=== PATIENT | female | born 1965 | race Two or more races ===

== ENCOUNTER 2018-04-06 01:20 | Emergency (ER) | payer SELFPAY ==
[~2018-04-06] VITALS: Ht 154.9 cm; Wt 60.3 kg
[~2018-04-06 01:20] MED LIST: VENL150C
[2018-04-06 02:41] LABS: Basophils # (auto) 0.1 uL; Eosinophils # (auto) 0.2 uL; Hemoglobin 10.2 g/dL (12.2-16.2); Lymphocytes # (auto) 2.4 uL; Mean Corpuscular Volume 77.1 fL (80.0-100.0); Monocytes # (auto) 0.7 uL; Monocytes % (auto) 6.2 % (0.0-12.0)
[2018-04-06 02:43] LABS: Basophils % (auto) 0.9 % (0.0-2.0); Eosinophils % (auto) 1.6 % (0.0-7.0); Hematocrit 32.6 % (36.0-46.0); Lymphocytes % (auto) 21.7 % (10.0-50.0); Mean Corpuscular Hemoglobin 24.2 pg (28.0-32.0); Mean Corpuscular Hgb Conc. 31.3 g/dL (32.0-36.0); Neutrophils # (auto) 7.7 uL; Neutrophils % (auto) 69.6 % (37.0-80.0); Nucleated Red Blood Cells % 0.1 %; Platelet Count (auto) 350 10^3/uL (140-450); Red Blood Cells 4.23 10^6/uL (4.0-5.20)
[2018-04-06 03:00] LABS: Alanine Aminotransferase 31 U/L (13-56); Albumin 3.2 g/dL (3.4-5.0); Anion Gap 9 (5-15); Aspartate Aminotransferase 19 U/L (15-37); BUN/Creatinine Ratio 9.7; Blood Alcohol < 3.0 mg/dL (0-5); Blood Urea Nitrogen 9 mg/dL (7-18); Calcium 7.7 mg/dL (8.5-10.1); Carbon Dioxide 24 mmol/L (21-32); Chloride 106 mmol/L (98-107); GFR African American 82 mL/min; GFR Non-African American 68 mL/min; Glucose 102 mg/dL (74-106); Magnesium 2.2 mg/dL (1.6-2.6); Potassium 3.5 mmol/L (3.5-5.1); Sodium 139 mmol/L (136-145)
[2018-04-06 03:05] LABS: Alkaline Phosphatase 86 U/L (45-117); Bilirubin, Total 0.1 mg/dL (0.2-1.0); Total Protein 6.8 g/dL (6.4-8.2)
[2018-04-06] MEDS ORDERED: SODIUM CHLORIDE 0.9% 1,000 ML IV ONE (04:30)
[2018-04-06 05:30] VITALS: BP 96/64
== END 2018-04-06 13:20 | disposition home or self-care (01) ==
LOC: EDBD 01:20 → ER 01:28
DX: R55 Syncope and collapse (principal)
CPT/HCPCS: 36415; 70450; 71045; 80053; 80320; 83735; 84484; 84702; 85025; 93005; 96360; 99285; J7030